=== PATIENT | female | born 1990 | race Caucasian/White ===

== ENCOUNTER → 2017-09-20 | Outpatient (CLI) | payer BC ==
[2017-09-20 17:13] LABS: BASO % 0.4 % (0.0-1.0); EOS % 0.3 % (0.0-3.0); IMMATURE GRANULOCYTE % 0.4 % (0-0); LYMPH # 0.8 10^3/uL (1.5-6.5); LYMPH % 9.6 % (24.0-44.0); MEAN CORPUSCULAR HEMOGLOBIN 29.5 pg (27.0-33.0); MEAN CORPUSCULAR HGB CONC 33.4 g/dl (32.0-36.5); MEAN CORPUSCULAR VOLUME 88.2 fl (80.0-96.0); MONO # 0.4 10^3/uL (0.0-0.8); NEUTROPHILS # 6.6 10^3/uL (1.8-7.7); NEUTROPHILS % 84.3 % (36.0-66.0); PLATELET COUNT, AUTOMATED 226 10^3/uL (150-450); RED CELL DISTRIBUTION WIDTH 11.8 % (11.5-14.5); WHITE BLOOD COUNT 7.8 10^3/uL (4.0-10.0)
[2017-09-20 17:21] LABS: CONTROL LINE MONO INT CTR LINE PRESENT
[2017-09-25 00:06] LABS: Lyme Disease IgG/IgM Antibodie <0.91 ISR (0.00-0.90); Lyme Disease IgM Ab Quantitati <0.80 index (0.00-0.79)
== END ==
LOC: M ADAMS 08:45
DX: R53.83 Other fatigue (principal)
CPT/HCPCS: 85025

== ENCOUNTER 2017-10-22 12:30 | Emergency (ER) | payer OTHER, BC | END 2017-10-22 14:27 | disposition home or self-care (01) | LOC: M ED 12:30 | DX: S60.222A Contusion of left hand, initial encounter (principal); V47.5XXA Car driver injured in collision with fixed or stationary object in traffic accident, initial encounter; Y92.410 Unspecified street and highway as the place of occurrence of the external cause; Y93.89 Activity, other specified | CPT/HCPCS: 73130 ==

== ENCOUNTER 2019-03-13 11:01 | Inpatient (IN) | payer BC, OTHER, SELFPAY ==
[~2019-03-13] VITALS: Ht 157.5 cm; Wt 71.0 kg
[~2019-03-13 11:01] MED LIST: XULA1DIS
[2019-03-13 13:10] VITALS: BP 141/68
[2019-03-13] MEDS ORDERED: SENN-23 PO (13:31)
[2019-03-13] MEDS ORDERED: COLA100C5 PO (13:31)
[2019-03-13] MEDS ORDERED: PREN1CHW6 PO (13:31)
[2019-03-13] MEDS ORDERED: CLIN1INJ IV (13:31)
[2019-03-13] MEDS ORDERED: [UNRECOGNIZED DRUG - CODE] IV (13:31)
[2019-03-13] MEDS ORDERED: LOVE1INJ SC (13:31)
[2019-03-13] MEDS ORDERED: IRON65TA2 PO (13:31)
[2019-03-13] MEDS ORDERED: IBUP80TA PO (13:31)
[2019-03-13] MEDS ORDERED: FOLI1TAB11 PO (13:31)
[2019-03-13] MEDS ORDERED: ACET-908 PO (13:31)
[2019-03-13 13:35] VITALS: BP 116/73
[2019-03-13] MEDS ORDERED: IRON SUCROSE 100MG 5ML VIAL (J1756 PER 1MG) IV ONE (14:00)
[2019-03-13] MEDS ORDERED: CLINDAMYCIN 600 MG in APPROPRIATE DILUENT 1 EA IV SCH (14:00)
[2019-03-13] MEDS ORDERED: NORCO, ANEXSIA 5/325MG TABLET (HYDROcodone/ACETAMINOPHEN) PO PRN (14:15)
--- NOTE | 2019-03-13 14:24 | HPEPDOC ---
General Date of Admission Mar 13, 2019 at 12:57 Date of Service: Mar 13, 2019 Chief Complaint The patient is a 28-year-old female admitted with a reason for visit of Severe Sepsis Post , Pe. History of Present Illness 28 yo F, post- day 3, no other known PMH transferred from [facility] while she was treated for severe sepsis under Dr. Gely Cook. She had a normal delivery on 03/10/2019, and she was successfully discharged. However, she developed a fever, chills, and presented to Dr. Cook's office. She was found to have leukocytosis up to 21.6 with symptoms of sepsis. Therefore, the patient was hospitalized. Initial CBC 21.6>10.1<175. Lactate 3.6. She was tachycardic. She has evidence of endometritis. Of note, she was found to have positive urine culture in Oct 2018 with Strep Agalactiae group B, but the patient decided not to be treated. During this hospital admission, two sets of blood culture shows G + cocci. Urine culture is in progress, but UA showed large UE, blood, and WBC 30-50. Lactate has normalized to 0.9. However, she was still tachycardic to 130-140. Therefore, Dr. Cook had CT angio, which confirmed PE in b/l lungs. Given post- d 3 bleeding, she received lovenox 40 subcut. Given complicated hospital course, the patient was transferred to [facility] for further medical management. Upon arrival, BP 144/68, HR 135, 95-97% on RA. She is febrile at 101F. Home Medications Scheduled Clindamycin in 0.9 % Sod Chlor (Clindamycin 900 mg/50 ml-Ns) 900 Mg/50 Ml Piggyback, 900 MG IV Q8H, (Reported) GIVEN AT [facility] Docusate Sodium (Colace) 100 Mg Capsule, 100 MG PO BID, (Reported) Enoxaparin Sodium (Lovenox) 40 Mg/0.4 Ml Syringe, 40 MG SC DAILY, (Reported) GIVEN AT [facility] Ferrous Sulfate (Iron) 325 Mg Tablet, 325 MG PO Q8H, (Reported) Folic Acid (Folic Acid) 1 Mg Tablet, 1 MG PO DAILY, (Reported) Gentamicin in NaCl, Iso-Osm (Gentamicin 100 mg/Ns 100 ml) 100 Mg/100 Ml Piggyback, 110 MG IV Q8H, (Reported) GIVEN AT [facility] Vit37/Iron/Folic Acid (Prenata Chewable Tablet) 1 Each Tab.chew, 1 CHW PO DAILY, (Reported) Sennosides/Docusate Sodium (Senna-S Tablet) 1 Each Tablet, 1 TAB PO BID, (Reported) Scheduled PRN Acetaminophen (Acetaminophen) 325 Mg Tablet, 650 MG PO Q4H PRN for PAIN, (Reported) Ibuprofen (Ibuprofen) 800 Mg Tablet, 800 MG PO TID PRN for PAIN, (Reported) Allergies Coded Allergies: amoxicillin (Verified Allergy, Unknown, HIVES, 03/13/19) cefprozil (Verified Allergy, Unknown, HIVES, 03/13/19) Past Medical History Medical History none Surgical History none Family History no significant FH Social History * Smoker: Denies Alcohol: Denies see above A-FIB/CHADSVASC A-FIB History Current/History of A-Fib/PAF?: No Review of Systems Constitutional: Reports: Chills, Fever, Weakness Eyes: Denies: Pain, Vision change, Conjunctivae inflammation, Eyelid inflammation, Redness, Other ENT: Denies: Head Aches, Ear Pain, Dysphagia, Sinus Congestion, Post Nasal Drip, Sore Throat, Epistaxis, Other Symptoms Skin: Denies: Rash, Lesions, Jaundice, Bruising, Itching, Dry, Breakdown, Nail Changes, Other Pulmonary: Reports: Other Symptoms (chest tightness) Cardiovascular: Denies: Chest Pain, Palpitations, Orthopnea, Paroxysmal Noc. Dyspnea, Edema, Lt Headedness, Other Symptoms Gastrointestinal: Reports: Abdominal Pain, Constipation Genitourinary: Denies: Dysuria, Frequency, Incontinence, Hematuria, Retention, Other Symptoms Hematologic: Denies: Bruising, Bleeding Excessively, Petecchia, Purpura, Enlarged Lymph Nodes, Other Hematologic Endocrine: Denies: Polydipsia, Polyphagia, Polyuria, Heat Intolerance, Cold Intolerance, Other Endocrine Sx Musculoskeletal: Denies: Neck Pain, Back Pain, Shoulder Pain, Arm Pain, Hand Pain, Leg Pain, Foot Pain, Joint Pain, Muscle Pain, Spasms, Other Symptoms Neurological: Denies: Weakness, Numbness, Incoordination, Change in speech, Confusion, Seizures, Other Symptoms Psych: Denies: Mood Normal, Anxiety, Depression, Memory Issues, Thoughts of Aruna f Harm, Anger, Thoughts of Harming Other, Other Psych Physical Examination General Exam: Positive: Alert, Cooperative, No Acute Distress Eye Exam: Positive: PERRLA ENT Exam: Positive: Atraumatic, Mucous membr. moist/pink Neck Exam: Positive: Supple Chest Exam: Positive: Clear to auscultation, Normal air movement Heart Exam: Positive: Tachycardic, Regular Rhythm Abdomen Exam: Positive: Normal bowel sounds Extremity Exam: Positive: Other (+1 edema b/l) Skin Exam: Positive: Nl turgor and temperature Neuro Exam: Positive: Normal Speech Psych Exam: Positive: Mood NL Vital Signs Vital Signs Date Time Temp Pulse Resp B/P (MAP) Pulse Ox O2 Delivery O2 Flow Rate FiO2 03/13/19 13:35 101.4 116/73 (87) 03/13/19 13:10 134 97 Problems (1) Severe sepsis Problem Text: # Severe sepsis from endometritis - The patient is febrile, tachycardic, leukocytosis, evidence of endometritis, with elevated lactic acid up to 3.6. Therefore, the patient has severe sepsis. - She is allergic to penicillin and cephalosporin. As mentioned in HPI, she declined to be treated for Group B strep treatment, and it was sensitive to clindamycin (JUWAN<0.25) and vancomycin (JUWAN 0.5). She received clindamycin and gentamicin at outside hospital. - Will send CBC/CMP, lactic acid, UA, urine culture, 2 sets of blood culture. Outside blood culture grows gram (+) cocci. - Will start clindamycin (bacteriocital), rather than vancomycin (bacteri ostatic). She was clinically improving on clindamycin at outside hospital. Also start aztreonam, which will continue until blood culture completely r/o gram (-) bacteria. # Pulmonary embolism - Currently, she is tachycardic and feels like her lungs are not expanding. This seems to be the symptom of PE. - Will start heparin gtt w/o bolus, given persistent vaginal bleeding from de livery. Heparin gtt can increase bleeding. Therefore, will carefully watch the degree of vaginal bleeding. PE can be life threatening. Therefore, if she has increased bleeding, will transfuse. Q6h CBC and PTT. - Today is Friday, not clear if echocardiogram is available, will order one. She has b/l lower ext edema +1, will order lower ext doppler to r/o DVT - likely be done on Friday. # Anemia - This is likely combination of IV hydration and bleeding from vagina. - Will give a dose of IV iron. # Constipation - Continue stool softner. Dr. Cook, , [facility] [phone], need to contact for culture sensitivity and speciation Plan / VTE VTE Prophylaxis Ordered?: Yes MARIA E GARCIA MD Mar 13, 2019 14:24
[2019-03-13] MEDS ORDERED: NS 1,000 ML IV SCH (14:30)
[2019-03-13 14:41] LABS: MEAN CORPUSCULAR HEMOGLOBIN 29.3 pg (27.0-33.0); MEAN CORPUSCULAR HGB CONC 32.1 g/dl (32.0-36.5); MEAN CORPUSCULAR VOLUME 91.2 fl (80.0-96.0); PLATELET COUNT, AUTOMATED 123 10^3/uL (150-450); RED BLOOD COUNT 3.07 10^6/uL (4.00-5.40)
[2019-03-13] MEDS: ACETAMINOPHEN TAB 650MG DOSE (2X325MG) PO PRN ×2 (14:44→21:18)
[2019-03-13 14:51] LABS: INR 1.19; PROTHROMBIN TIME 14.8 SECONDS (11.8-14.0)
[2019-03-13 14:52] LABS: PARTIAL THROMBOPLASTIN TIME 32.2 SECONDS (25.0-38.4)
[2019-03-13] MEDS ORDERED: AZTREONAM 2 GM in D5W MINI-BAG PLUS 50 ML IV SCH (15:00)
[2019-03-13 15:14] LABS: ALBUMIN 1.9 GM/DL (3.2-5.2); ALT/SGPT 151 U/L (12-78); BILIRUBIN,TOTAL 0.3 MG/DL (0.2-1.0); BLOOD UREA NITROGEN 6 MG/DL (7-18); CALCIUM LEVEL 8.3 MG/DL (8.5-10.1); CARBON DIOXIDE LEVEL 19 MEQ/L (21-32); CHLORIDE LEVEL 112 MEQ/L (98-107); CREATININE FOR GFR 0.42 MG/DL (0.55-1.30); GLOMERULAR FILTRATION RATE > 60.0 (>60); GLUCOSE, FASTING 102 MG/DL (70-100); POTASSIUM SERUM 3.5 MEQ/L (3.5-5.1); SODIUM LEVEL 140 MEQ/L (136-145); TOTAL PROTEIN 5.6 GM/DL (6.4-8.2)
[2019-03-13 16:00] VITALS: BP 114/55
[2019-03-13] MEDS ORDERED: IRON SUCROSE 200 MG in NS 100 ML OVER 1 HR IV ONE (16:00)
[2019-03-13] MEDS: LACTOBACILLUS ACIDOPHILUS CAP (BACID) PO SCH ×2 (16:00→21:18)
[2019-03-13] MEDS: HEPARIN DRIP 25,000 UNITS in APPROPRIATE DILUENT 1 EA IV SCH (16:13)
[2019-03-13] MEDS ORDERED: GENTAMICIN 100 MG in APPROPRIATE DILUENT 1 EA IV SCH (17:00)
[2019-03-13] MEDS: SENOKOT S TAB PO SCH (21:18)
[2019-03-13] MEDS: MEROPENEM INJ 2 GM in NS 100 ML IV SCH (21:19)
[2019-03-13 22:24] LABS: HEMATOCRIT 26.1 % (36.0-47.0); HEMOGLOBIN 8.6 g/dl (12.0-15.5); MEAN CORPUSCULAR HEMOGLOBIN 29.7 pg (27.0-33.0); PLATELET COUNT, AUTOMATED 117 10^3/uL (150-450); WHITE BLOOD COUNT 8.2 10^3/uL (4.0-10.0)
[2019-03-14] VITALS (7 sets, daily range): BP systolic 106–132; BP diastolic 47–84
[2019-03-14 04:28] LABS: HEMATOCRIT 29.7 % (36.0-47.0); HEMOGLOBIN 9.7 g/dl (12.0-15.5); MEAN CORPUSCULAR HEMOGLOBIN 29.2 pg (27.0-33.0); MEAN CORPUSCULAR HGB CONC 32.7 g/dl (32.0-36.5); MEAN CORPUSCULAR VOLUME 89.5 fl (80.0-96.0); PLATELET COUNT, AUTOMATED 159 10^3/uL (150-450); RED BLOOD COUNT 3.32 10^6/uL (4.00-5.40); WHITE BLOOD COUNT 10.4 10^3/uL (4.0-10.0)
[2019-03-14 05:00] LABS: ALBUMIN 2.1 GM/DL (3.2-5.2); ALT/SGPT 248 U/L (12-78); BILIRUBIN,TOTAL 0.5 MG/DL (0.2-1.0); BLOOD UREA NITROGEN 8 MG/DL (7-18); CARBON DIOXIDE LEVEL 22 MEQ/L (21-32); CHLORIDE LEVEL 109 MEQ/L (98-107); CREATININE FOR GFR 0.63 MG/DL (0.55-1.30); GLOMERULAR FILTRATION RATE > 60.0 (>60); GLUCOSE, FASTING 77 MG/DL (70-100); POTASSIUM SERUM 3.7 MEQ/L (3.5-5.1); SODIUM LEVEL 139 MEQ/L (136-145); TOTAL PROTEIN 5.9 GM/DL (6.4-8.2)
[2019-03-14] MEDS: ACETAMINOPHEN TAB 650MG DOSE (2X325MG) PO PRN ×4 (05:05→22:28)
[2019-03-14] MEDS: MEROPENEM INJ 2 GM in NS 100 ML IV SCH ×3 (06:30→21:23)
--- NOTE | 2019-03-14 06:41 | ECHO ---
DATE OF STUDY: 03/13/2019 REFERRING PHYSICIAN: Dr. Hudson Gee INDICATION: Acute pulmonary embolism. HEIGHT: 61 inches. WEIGHT: 154 pounds. 2D MEASUREMENTS: Ventricular septum 0.8 cm Posterior wall 0.87 cm Left ventricle diastole 4.6 cm Left atrium 3.0 cm Aortic root 3.0 cm Inferior vena cava 1.6 cm (more than 50% respiratory variation) DOPPLER MEASUREMENTS: Aortic valve velocity 218 cm/s LVOT velocity 163 cm/s LVOT VTI 25.9 cm Mitral E velocity 104 cm/s Mitral A velocity 135 cm/s Very mild tricuspid regurgitation Estimated right ventricle systolic pressure 39-44 mmHg assuming a right atrial pressure of 5-10 mmHg MITRAL ANNULAR TISSUE DOPPLER: E prime septal 14.7 cm/s E prime lateral 24.6 cm/s DESCRIPTION: Rhythm was sinus tachycardia. Image quality was good. No pericardial effusion. This was a 2D, M mode, color flow Doppler and pulse wave Doppler examination and included mitral annular tissue Doppler. CONCLUSIONS: 1. Suggestive of at least mild-moderate elevation of estimated right ventricle systolic pressure (at least 39-44 mmHg). Normal right ventricle size and systolic function. Normal central venous pressure (estimated to be 5-10 mmHg). 2. Normal left ventricle internal dimensions and wall thickness. Normal regional LV wall motion and wall thickening. Normal LV systolic function. LVEF 65-70% by visual estimate. Normal LV diastolic function. 3. Otherwise, normal appearing echocardiogram Doppler findings.
[2019-03-14] MEDS: SENOKOT S TAB PO SCH ×2 (10:08→21:23)
[2019-03-14] MEDS: LACTOBACILLUS ACIDOPHILUS CAP (BACID) PO SCH ×3 (10:09→21:23)
[2019-03-14] MEDS: HEPARIN DRIP 25,000 UNITS in APPROPRIATE DILUENT 1 EA IV SCH (12:36)
--- NOTE | 2019-03-14 17:12 | IPNPDOC ---
Date Seen The patient was seen on 03/14/19. Progress Note SUBJECTIVE: Ms Puente is a 28-year-old female who is . She unfortunately has had complications of sepsis, endometritis and bilateral pulmonary emboli. She is not having remarkable pain. She is having discomfort with deep inspiration. OBJECTIVE PHYSICAL EXAMINATION: VITAL SIGNS: Please see below. GENERAL: [Awake, alert, conversant. She is noted to have a sallow complexion but is otherwise not ill appearing] HEENT: [Neck is supple with no adenopathy or thyromegaly, oral mucosa is moist, she has good dentition, she does not have scleral icterus or injection.] CARDIOVASCULAR: [Regular rate and rhythm, no appreciable murmur]. RESPIRATORY: [Patient overall has good air movement, she does have tightness with inspiration, which induces cough.]. ABDOMINAL: [Soft, post-gravid, nondistended, bowel tones are present] EXTREMITIES: [No peripheral edema, pedal pulses are palpable] NEUROLOGICAL: [No focal neuromotor or sensory deficit] PSYCHOLOGICAL: [Cognition, judgment and insight appear to be intact.] LABORATORY DATA, IMAGING STUDIES, MICROBIOLOGY: Please see below. Echocardiogram: [Echocardiogram shows normal ejection fraction of 65-70% with normal diastolic function. Some increased right ventricular systolic pressure 39 and 44 mmHg which could be consistent with pulmonary embolus.]. DVT prophylaxis ordered?: [heparin gtt] ASSESSMENT/PLAN: 1. Sepsis--patient has endometritis. Blood cultures from outlying facility are positive for strep group B. Patient remains on meropenem. She has been afebrile and leukocytosis is resolved. 2. Bilateral pulmonary emboli--patient is on anticoagulation with heparin drip. She is expectant of lower extremity Dopplers as she does have lower extremity swelling. She will need to be on longer term anticoagulation. We will need to consider the fact that she plans to breast-feed in selecting an appropriate agent. 3. Elevated liver enzymes--the etiology of these is unclear. Bilirubin is normal. We will likely arrange for right upper quadrant ultrasound to eval the gallbladder and biliary tree.. She may also need vascular ultrasound of the area as well. DISPOSITION: . VS, I&O, 24H, Fishbone Vital Signs/I&O Vital Signs Date Time Temp Pulse Resp B/P (MAP) Pulse Ox O2 Delivery O2 Flow Rate FiO2 03/14/19 16:00 97.5 120 18 132/84 (100) 95 I&O- Last 24 Hours up to 6 AM 03/14/19 06:00 Intake Total 2021 ml Output Total 2049 ml Balance -28 ml Laboratory Data 24H LABS Laboratory Tests 2 03/13/19 22:12: Nucleated Red Blood Cells % (auto) 0.0, Activated Partial Thromboplast Time 73.5H, Troponin I 0.09 03/14/19 04:15: Nucleated Red Blood Cells % (auto) 0.0, Activated Partial Thromboplast Time 71.9H 03/14/19 04:16: Anion Gap 8, Glomerular Filtration Rate > 60.0, Blood Urea Nitrogen 8, Creatinine 0.63, Sodium Level 139, Potassium Level 3.7, Chloride Level 109H, Carbon Dioxide Level 22, Calcium Level 8.0L, Aspartate Amino Transf (AST/SGOT) 203H, Alanine Aminotransferase (ALT/SGPT) 248H, Alkaline Phosphatase 207H, Total Bilirubin 0.5#, Total Protein 5.9L, Albumin 2.1L, Albumin/Globulin Ratio 0.55L CBC/BMP Laboratory Tests 03/13/19 22:12 Red Blood Count 2.90 L, Mean Corpuscular Volume 90.0, Mean Corpuscular Hemoglobin 29.7, Mean Corpuscular Hemoglobin Concent 33.0, Red Cell Distribution Width 13.7 03/14/19 04:15 Red Blood Count 3.32 L, Mean Corpuscular Volume 89.5, Mean Corpuscular Hemoglobin 29.2, Mean Corpuscular Hemoglobin Concent 32.7, Red Cell Distribution Width 13.9 03/14/19 04:16 Calcium Level 8.0 L, Aspartate Amino Transf (AST/SGOT) 203 H, Alanine Aminotransferase (ALT/SGPT) 248 H, Alkaline Phosphatase 207 H, Total Bilirubin 0.5 #, Total Protein 5.9 L, Albumin 2.1 L Microbiology Microbiology 03/13/19 Blood Culture - Preliminary, Resulted No growth after 24 hours . All specim... 03/13/19 Blood Culture - Preliminary, Resulted No growth after 24 hours . All specim... ROLAN PINEDA MD Mar 14, 2019 17:12
[2019-03-15] VITALS (7 sets, daily range): BP systolic 119–135; BP diastolic 69–77
[2019-03-15] MEDS ORDERED: MAALOX 30 ML SUSP *UDC PO PRN (02:45)
[2019-03-15] MEDS ORDERED: IBUPROFEN 800 MG TAB PO ONE (02:45)
[2019-03-15] MEDS ORDERED: PANTOPRAZOLE 40MG INJ (PROTONIX) (C9113) IV ONE (02:45)
--- NOTE | 2019-03-15 04:26 | REPVR ---
EXAM: XR Chest, 1 View EXAM DATE/TIME: 03/15/2019 3:05 AM CLINICAL HISTORY: 28 years old, female; Shortness of breath; Patient HX: Septic, post , PE TECHNIQUE: Imaging protocol: XR of the chest, 1 view. COMPARISON: No relevant prior studies available. FINDINGS: Lungs: There are bibasilar airspace opacities. Pleural space: There is blunting of the costophrenic sulci bilaterally, which may indicate bilateral pleural effusions. No pneumothorax is identified. Heart/Mediastinum: Unremarkable. No cardiomegaly. Bones/joints: Unremarkable. IMPRESSION: 1. Bibasilar airspace opacities, which represent atelectasis, pneumonia, or aspiration pneumonia. 2. Blunting of the costophrenic sulci bilaterally, which may indicate bilateral pleural effusions. Electronically signed by: Tarik Prescott On 03/15/2019 04:26:35 AM
[2019-03-15] MEDS: MEROPENEM INJ 2 GM in NS 100 ML IV SCH ×2 (06:12→14:40)
[2019-03-15 06:42] LABS: ALBUMIN 1.9 GM/DL (3.2-5.2); ALT/SGPT 172 U/L (12-78); BILIRUBIN,TOTAL 0.5 MG/DL (0.2-1.0); BLOOD UREA NITROGEN 11 MG/DL (7-18); CALCIUM LEVEL 7.7 MG/DL (8.5-10.1); CARBON DIOXIDE LEVEL 19 MEQ/L (21-32); CHLORIDE LEVEL 112 MEQ/L (98-107); CREATININE FOR GFR 0.58 MG/DL (0.55-1.30); GLOMERULAR FILTRATION RATE > 60.0 (>60); GLUCOSE, FASTING 80 MG/DL (70-100); POTASSIUM SERUM 3.3 MEQ/L (3.5-5.1); SODIUM LEVEL 141 MEQ/L (136-145); TOTAL PROTEIN 5.4 GM/DL (6.4-8.2)
[2019-03-15] MEDS: POTASSIUM CHLORIDE 10 MEQ SR TABLET PO SCH (08:38)
[2019-03-15] MEDS: LACTOBACILLUS ACIDOPHILUS CAP (BACID) PO SCH ×3 (08:38→21:53)
[2019-03-15] MEDS: SENOKOT S TAB PO SCH ×2 (08:38→21:53)
--- NOTE | 2019-03-15 08:41 | REP ---
Abdominal right upper quadrant ultrasound for elevated liver function tests: There is ascites along the medial border of the hepatic right lobe. Additionally, there is a right pleural effusion. There is no cholelithiasis. There is pericholecystic fluid, possibly ascites. The gallbladder wall is thickened measuring up to 6.9 mm. This may be secondary to the ascites. There is no intrahepatic or extrahepatic biliary duct dilatation. The common duct measures 2.2 mm. The hepatic parenchyma is homogeneous and otherwise unremarkable. The visualized portions of the pancreas are unremarkable. There is no right renal calculus, mass, cyst or hydronephrosis. The right kidney is normal size measuring 12.7 x 7.8 x 3.8 cm. Impression: There is ascites along the medial margin of the hepatic right lobe. There is no cholelithiasis. There is pericholecystic fluid, possibly ascites. The gallbladder wall is thickened measuring up to 6.90 mm, possibly secondary to the ascites. There is no biliary duct dilatation. Electronically Signed by Chad Lugo MD 03/15/2019 08:33 A
[2019-03-15] MEDS: HEPARIN DRIP 25,000 UNITS in APPROPRIATE DILUENT 1 EA IV SCH (12:27)
[2019-03-15] MEDS: IBUPROFEN 800 MG TAB PO PRN (16:37)
--- NOTE | 2019-03-15 16:59 | IPNPDOC ---
Date Seen The patient was seen on 03/15/19. Progress Note SUBJECTIVE: This is a 28-year-old female with complications of sepsis, endometritis, and bilateral pulmonary emboli. She's been having some episodes of breathlessness and so is requiring some supplemental oxygen. She is not having chest pain. She is having some episodes of fever. OBJECTIVE PHYSICAL EXAMINATION: VITAL SIGNS: Please see below. GENERAL: Awake, alert, conversant. She is noted to have a sallow complexion but is otherwise not ill appearing HEENT: Neck is supple with no adenopathy or thyromegaly, oral mucosa is moist, she has good dentition, she does not have scleral icterus or injection. CARDIOVASCULAR: Regular rate and rhythm, no appreciable murmur. RESPIRATORY: Patient overall has good air movement, she does have tightness with inspiration, which induces cough.. ABDOMINAL: Soft, post-gravid, nondistended, mildly tender to deep palpation bowel tones are present EXTREMITIES: No peripheral edema, pedal pulses are palpable NEUROLOGICAL: No focal neuromotor or sensory deficit PSYCHOLOGICAL: Cognition, judgment and insight appear to be intact. SKIN: The patient does not have jaundice LABORATORY DATA, IMAGING STUDIES, MICROBIOLOGY: Please see below. Echocardiogram: . DVT prophylaxis ordered?: Patient is currently on a heparin drip ASSESSMENT/PLAN: 1. Sepsis--patient has endometritis. Blood cultures from outlying facility are positive for strep group B. Patient remains on meropenem. She has allergies to penicillin and reported cephalosporin. Leukocytosis is resolved. She has had fever, however. 2. Bilateral pulmonary emboli--patient is on anticoagulation with heparin drip. She is expectant of lower extremity Dopplers as she does have mild lower extremity swelling. She will need to be on longer term anticoagulation. The patient can be started on Coumadin therapy; it is not excreted into breast milk and consequently is not contraindicated. She can be transitioned to Lovenox for bridge therapy. 3. Elevated liver enzymes--the etiology of these is unclear. Bilirubin is normal. Liver enzyme levels are decreasing. Ultrasound is negative for ch olelithiasis or cholecystitis. We'll continue to monitor. 4. The patient had had some breast firmness and discomfort. She did not get relief from the breast pump. She has nursed her baby a few times and her milk flow is improving and this issue is resolved. There are no residual concerns for mastitis at this time. DISPOSITION: . VS, I&O, 24H, Fishbone Vital Signs/I&O Vital Signs Date Time Temp Pulse Resp B/P (MAP) Pulse Ox O2 Delivery O2 Flow Rate FiO2 03/15/19 16:00 102.7 131 20 135/74 (94) 97 3.0 I&O- Last 24 Hours up to 6 AM 03/15/19 06:00 Intake Total 1406 ml Output Total 2700 ml Balance -1294 ml Laboratory Data 24H LABS Laboratory Tests 2 03/15/19 05:55: Anion Gap 10, Glomerular Filtration Rate > 60.0, Blood Urea Nitrogen 11, Creatinine 0.58, Sodium Level 141, Potassium Level 3.3L, Chloride Level 112H, Carbon Dioxide Level 19L, Calcium Level 7.7L, Aspartate Amino Transf (AST/SGOT) 94H, Alanine Aminotransferase (ALT/SGPT) 172H, Alkaline Phosphatase 243H, Total Bilirubin 0.5, Total Protein 5.4L, Albumin 1.9L, Albumin/Globulin Ratio 0.54L 03/15/19 05:56: Activated Partial Thromboplast Time 82.1H CBC/BMP Laboratory Tests 03/15/19 05:55 Calcium Level 7.7 L, Aspartate Amino Transf (AST/SGOT) 94 H, Alanine Aminotransferase (ALT/SGPT) 172 H, Alkaline Phosphatase 243 H, Total Bilirubin 0.5, Total Protein 5.4 L, Albumin 1.9 L Microbiology Microbiology 03/13/19 Blood Culture - Preliminary, Resulted No Growth after 48 hours. All Specime... 03/13/19 Blood Culture - Preliminary, Resulted No Growth after 48 hours. All Specime... 03/15/19 Urine Culture, Received Pending ROLAN PINEDA MD Mar 15, 2019 16:59
[2019-03-15] MEDS ORDERED: MEROPENEM INJ 1 GM in APPROPRIATE DILUENT 1 EA IV SCH (17:00)
[2019-03-15] MEDS ORDERED: WARFARIN SOD 4 MG TAB PO SCH (17:00)
--- NOTE | 2019-03-15 18:22 | REP ---
Clinical: with bilateral lower extremity pain . Technique: Coto scale and color Doppler evaluation using linear high frequency transducer. Findings: Ultrasound examination of the right and left lower extremity deep venous structures from the common femoral vein to the popliteal vein demonstrates normal compressibility flow and wave patterns in response to respiration and augmentation. There is no evidence for deep venous thrombosis. Impression: No evidence for deep venous thrombosis. Electronically Signed by Orville Cornejo MD 03/15/2019 06:14 P
[2019-03-15] MEDS: MEROPENEM INJ 1 GM in APPROPRIATE DILUENT 1 EA IV SCH (21:52)
[2019-03-16] MEDS: IBUPROFEN 800 MG TAB PO PRN ×2 (03:47→23:21)
[2019-03-16 04:00] VITALS: BP 126/67
[2019-03-16] MEDS: MEROPENEM INJ 1 GM in APPROPRIATE DILUENT 1 EA IV SCH ×3 (06:02→21:11)
[2019-03-16 06:30] LABS: ALBUMIN 1.9 GM/DL (3.2-5.2); ALT/SGPT 140 U/L (12-78); BILIRUBIN,TOTAL 0.5 MG/DL (0.2-1.0); BLOOD UREA NITROGEN 16 MG/DL (7-18); CALCIUM LEVEL 8.1 MG/DL (8.5-10.1); CARBON DIOXIDE LEVEL 18 MEQ/L (21-32); CHLORIDE LEVEL 115 MEQ/L (98-107); GLOMERULAR FILTRATION RATE > 60.0 (>60); GLUCOSE, FASTING 101 MG/DL (70-100); POTASSIUM SERUM 3.2 MEQ/L (3.5-5.1); SODIUM LEVEL 143 MEQ/L (136-145); TOTAL PROTEIN 5.7 GM/DL (6.4-8.2)
[2019-03-16] MEDS: HEPARIN SOD (PORCINE) 5000 UNITS/ML VIAL IV PRN ×2 (06:39→20:04)
[2019-03-16 07:53] VITALS: BP 115/63
[2019-03-16] MEDS: SENOKOT S TAB PO SCH ×2 (09:13→21:10)
[2019-03-16] MEDS: LACTOBACILLUS ACIDOPHILUS CAP (BACID) PO SCH ×3 (09:13→21:10)
[2019-03-16] MEDS: POTASSIUM CHLORIDE 10 MEQ SR TABLET PO SCH (09:13)
[2019-03-16 11:01] LABS: INR 1.18; PROTHROMBIN TIME 14.7 SECONDS (11.8-14.0)
[2019-03-16 11:37] VITALS: BP 141/67
[2019-03-16] MEDS: HEPARIN DRIP 25,000 UNITS in APPROPRIATE DILUENT 1 EA IV SCH (12:36)
--- NOTE | 2019-03-16 14:14 | IPNPDOC ---
Text Note Date of Service The patient was seen on 03/16/19. NOTE Pt was seen and examined at bedside. Pt is day #6. She denies any lower abdomen pain or tenderness. Denies any fever chills. Pt is her . Pt denies any episode of bleeding. INR <2 on warfarin 4 mg. Heparin gtt running. Pt has good po intake, ambulates well. LE Doppler U/S negative for any DVT. Echo result was reviewed. PHE: VITAL SIGNS: Please see below. GENERAL: AAOx3 NAD HEENT: no jaundice neck supple no thyromegaly CARDIOVASCULAR: Regular rate and rhythm S1 S2 RESPIRATORY: clear bilat no wheeze no rales ABDOMINAL: soft NT ND EXTREMITIES: No peripheral edema, pedal pulses are palpable NEUROLOGICAL: No focal neuromotor or sensory deficit PSYCHOLOGICAL: mood affect appropriate LABORATORY DATA, IMAGING STUDIES, MICROBIOLOGY: Please see below. Echocardiogram: DESCRIPTION: Rhythm was sinus tachycardia. Image quality was good. No pericardial effusion. This was a 2D, M mode, color flow Doppler and pulse wave Doppler examination and included mitral annular tissue Doppler. CONCLUSIONS: 1. Suggestive of at least mild-moderate elevation of estimated right ventricle systolic pressure (at least 39-44 mmHg). Normal right ventricle size and systolic function. Normal central venous pressure (estimated to be 5-10 mmHg). 2. Normal left ventricle internal dimensions and wall thickness. Normal regional LV wall motion and wall thickening. Normal LV systolic function. LVEF 65-70% by visual estimate. Normal LV diastolic function. 3. Otherwise, normal appearing echocardiogram Doppler findings. Vital Signs Date Time Temp Pulse Resp B/P (MAP) Pulse Ox O2 Delivery O2 Flow Rate FiO2 03/16/19 12:00 3.0 03/16/19 11:37 97.3 99 18 141/67 (91) 97 3.0 03/16/19 08:00 3.0 03/16/19 07:53 97.9 89 17 115/63 (80) 94 3.0 03/16/19 04:00 100.3 120 16 126/67 (86) 93 03/15/19 23:59 98.3 103 16 127/69 (88) 93 03/15/19 20:00 99.2 112 16 119/77 (91) 92 03/15/19 17:48 100.0 03/15/19 16:00 2.0 03/15/19 16:00 102.7 131 20 135/74 (94) 97 3.0 03/15/19 14:49 102.0 Intake & Output 03/16/19 06:00 Intake Total 241 ml Output Total 400 ml Balance -159 ml Laboratory Tests 03/16/19 05:35: Activated Partial Thromboplast Time 56.9H, Blood Urea Nitrogen 16, Creatinine 0.60, Sodium Level 143, Potassium Level 3.2L, Chloride Level 115H, Carbon Dioxide Level 18L, Calcium Level 8.1L, Aspartate Amino Transf (AST/SGOT) 60H, Alanine Aminotransferase (ALT/SGPT) 140H, Alkaline Phosphatase 266H, Total Bilirubin 0.5, Total Protein 5.7L, Albumin 1.9L, Anion Gap 10, Glomerular Filtration Rate > 60.0, Fasting Glucose 101H, Albumin/Globulin Ratio 0.50L 03/16/19 10:22: Prothrombin Time 14.7H, Prothromb Time International Ratio 1.18 03/16/19 12:53: Activated Partial Thromboplast Time 82.3H Microbiology 03/15/19 Urine Culture - Final, Complete Current Medications Medications (Trade) Dose Ordered Sig/Gogo Route PRN Reason Start Time Stop Time Status Last Admin Dose Admin Heparin Sodium (Porcine) (Heparin) ASDIRECTED PRN IV SEE LABEL COMMENTS 03/13/19 14:00 03/16/19 06:39 2,900 UNITS Heparin Sodium (Porcine) 52946 units/IV Miscellaneous Supplies 250 ml @ 0 mls/hr Q0M IV 03/13/19 13:58 03/16/19 12:36 12 MLS/HR Ibuprofen (Advil) 800 mg Q8HP PRN PO FEVER 03/15/19 16:30 03/16/19 03:47 800 MG Lactobacillus Acidophilus (Bacid) 1 ea TID PO 03/13/19 16:00 03/16/19 09:13 1 EA Meropenem 1 gm/IV Miscellaneous Supplies 50 ml @ 100 mls/hr Q8H IV 03/15/19 22:00 03/16/19 14:09 100 MLS/HR Non-Formulary Medication (Heparin Iv Rate Change Documentation ml/ Hr) ASDIRECTED XX 03/13/19 14:00 03/18/19 13:59 03/16/19 06:41 1,200 Potassium Chloride (Micro-K Extencaps) 20 meq DAILY PO 03/15/19 09:00 03/16/19 09:13 20 MEQ Senna/Docusate Sodium (Senokot S) 2 tab BID PO 03/13/19 21:00 03/16/19 09:13 2 TAB Warfarin Sodium (Coumadin) 4 mg DAILY@17 PO 03/15/19 17:00 03/15/19 16:37 4 MG ASSESSMENT/PLAN: 1. Sepsis sec to endometritis hemodynamically improved WBC trended down On meropenem due to PCN allergy Blood Culture from outside [facility] Blood Culture on 03/13 negative x2 Denies any lower abdomen pain tenderness or vaginal discharge 2.Bilateral PE Echo reviewed, mild to moderate stress on Rt Ventricle Cont close clinical monitoring As evidenced in CTA from outside, record not available Con Heparin gtt Warfarin dose adjusted, INR in AM Doppler LE negative 3. Elevated liver enzymes cont to monitor likely sec to status Discharge planning: pt can be dc home once INR therapeutic. VS,Fishbone, I+O VS, Fishbone, I+O Laboratory Tests 03/16/19 05:35 Calcium Level 8.1 L, Aspartate Amino Transf (AST/SGOT) 60 H, Alanine Aminotransferase (ALT/SGPT) 140 H, Alkaline Phosphatase 266 H, Total Bilirubin 0.5, Total Protein 5.7 L, Albumin 1.9 L Vital Signs Date Time Temp Pulse Resp B/P (MAP) Pulse Ox O2 Delivery O2 Flow Rate FiO2 03/16/19 12:00 3.0 03/16/19 11:37 97.3 99 18 141/67 (91) 97 I&O- Last 24 Hours up to 6 AM 03/16/19 06:00 Intake Total 241 ml Output Total 400 ml Balance -159 ml GUSTAVO FLYNN MD Mar 16, 2019 14:14
[2019-03-16] MEDS: WARFARIN SOD 5 MG TAB PO SCH (16:09)
[2019-03-16 16:38] VITALS: BP 132/82
[2019-03-16 20:00] VITALS: BP 119/65
[2019-03-16 23:59] VITALS: BP 120/72
[2019-03-17] VITALS (7 sets, daily range): BP systolic 122–135; BP diastolic 60–91
[2019-03-17] MEDS: MEROPENEM INJ 1 GM in APPROPRIATE DILUENT 1 EA IV SCH ×3 (06:08→21:23)
[2019-03-17 06:39] LABS: HEMATOCRIT 24.4 % (36.0-47.0); HEMOGLOBIN 7.9 g/dl (12.0-15.5); MEAN CORPUSCULAR HEMOGLOBIN 28.3 pg (27.0-33.0); MEAN CORPUSCULAR HGB CONC 32.4 g/dl (32.0-36.5); MEAN CORPUSCULAR VOLUME 87.5 fl (80.0-96.0); PLATELET COUNT, AUTOMATED 227 10^3/uL (150-450); RED BLOOD COUNT 2.79 10^6/uL (4.00-5.40); WHITE BLOOD COUNT 9.9 10^3/uL (4.0-10.0)
[2019-03-17 06:44] LABS: INR 1.56; PROTHROMBIN TIME 18.4 SECONDS (11.8-14.0)
[2019-03-17 07:01] LABS: ALBUMIN 1.8 GM/DL (3.2-5.2); ALT/SGPT 109 U/L (12-78); BILIRUBIN,TOTAL 0.3 MG/DL (0.2-1.0); BLOOD UREA NITROGEN 15 MG/DL (7-18); CALCIUM LEVEL 7.9 MG/DL (8.5-10.1); CARBON DIOXIDE LEVEL 20 MEQ/L (21-32); CHLORIDE LEVEL 115 MEQ/L (98-107); CREATININE FOR GFR 0.52 MG/DL (0.55-1.30); GLOMERULAR FILTRATION RATE > 60.0 (>60); GLUCOSE, FASTING 72 MG/DL (70-100); POTASSIUM SERUM 3.6 MEQ/L (3.5-5.1); SODIUM LEVEL 144 MEQ/L (136-145); TOTAL PROTEIN 5.5 GM/DL (6.4-8.2)
[2019-03-17 07:22] LABS: EOSINOPHILS 2 % (0-5); LYMPHOCYTES 35 % (16-52); MONOCYTES 7 % (0-8); NEUTROPHILS 56 % (35-75); PLATELET ESTIMATE NORMAL (NORMAL)
[2019-03-17] MEDS: POTASSIUM CHLORIDE 10 MEQ SR TABLET PO SCH (09:28)
[2019-03-17] MEDS: SENOKOT S TAB PO SCH ×2 (09:29→21:23)
[2019-03-17] MEDS: LACTOBACILLUS ACIDOPHILUS CAP (BACID) PO SCH ×3 (09:29→21:23)
[2019-03-17] MEDS: HEPARIN DRIP 25,000 UNITS in APPROPRIATE DILUENT 1 EA IV SCH (10:33)
[2019-03-17] MEDS: IBUPROFEN 800 MG TAB PO PRN (16:13)
[2019-03-17] MEDS: WARFARIN SOD 5 MG TAB PO SCH (16:14)
--- NOTE | 2019-03-17 18:13 | IPNPDOC ---
Text Note Date of Service The patient was seen on 03/17/19. NOTE Pt was seen and examined at bedside. Pt denies any lower abdomen pain, no ep isode of bleeding, heparin drip continues, at bedside. Discussed with pt and plan for anticoagulation and antibiotic therapy upon DC home. PHE: VITAL SIGNS: Please see below. GENERAL: AAOx3 NAD pt severely pale appearing HEENT: no jaundice neck supple no thyromegaly CARDIOVASCULAR: Regular rate and rhythm S1 S2 RESPIRATORY: clear bilat no wheeze no rales ABDOMINAL: soft NT ND EXTREMITIES: No peripheral edema, pedal pulses are palpable NEUROLOGICAL: No focal neuromotor or sensory deficit PSYCHOLOGICAL: mood affect appropriate Echocardiogram: DESCRIPTION: Rhythm was sinus tachycardia. Image quality was good. No pericardial effusion. This was a 2D, M mode, color flow Doppler and pulse wave Doppler examination and included mitral annular tissue Doppler. CONCLUSIONS: 1. Suggestive of at least mild-moderate elevation of estimated right ventricle systolic pressure (at least 39-44 mmHg). Normal right ventricle size and systolic function. Normal central venous pressure (estimated to be 5-10 mmHg). 2. Normal left ventricle internal dimensions and wall thickness. Normal regional LV wall motion and wall thickening. Normal LV systolic function. LVEF 65-70% by visual estimate. Normal LV diastolic function. 3. Otherwise, normal appearing echocardiogram Doppler findings. Vital Signs Date Time Temp Pulse Resp B/P (MAP) Pulse Ox O2 Delivery O2 Flow Rate FiO2 03/17/19 16:12 98.9 104 18 135/73 (93) 96 03/17/19 16:00 98.6 93 18 134/91 (105) 94 03/17/19 11:47 97.1 109 18 122/60 (80) 96 03/17/19 09:15 96 03/17/19 08:00 97.4 85 18 123/60 (81) 98 2.0 03/17/19 04:00 97.5 82 18 122/64 (83) 99 2.0 03/17/19 04:00 2.0 03/17/19 00:00 2.0 03/16/19 23:59 99.6 100 20 120/72 (88) 96 2.0 03/16/19 20:00 99.4 115 20 119/65 (83) 96 2.0 03/16/19 20:00 2.0 Intake & Output 03/17/19 06:00 Intake Total 1245 ml Output Total 650 ml Balance 595 ml Laboratory Tests 03/16/19 18:53: Activated Partial Thromboplast Time 62.6H 03/17/19 02:28: Activated Partial Thromboplast Time 137.9*H 03/17/19 06:11: White Blood Count 9.9, Red Blood Count 2.79L, Hemoglobin 7.9L, Hematocrit 24.4L, Mean Corpuscular Volume 87.5, Mean Corpuscular Hemoglobin 28.3, Mean Corpuscular Hemoglobin Concent 32.4, Red Cell Distribution Width 13.7, Platelet Count 227, Immature Granulocyte % (Auto) , Nucleated Red Blood Cells % (auto) 0.2H, Neutrophils 56, Lymphocytes (Manual) 35, Monocytes (Manual) 7, Eosinophils (Manual) 2, Platelet Estimate NORMAL, Red Blood Cell Morphology NORMAL, Prothrombin Time 18.4H, Prothromb Time International Ratio 1.56, Blood Urea Nitrogen 15, Creatinine 0.52L, Sodium Level 144, Potassium Level 3.6, Chloride Level 115H, Carbon Dioxide Level 20L, Calcium Level 7.9L, Aspartate Amino Transf (AST/SGOT) 43H, Alanine Aminotransferase (ALT/SGPT) 109H, Alkaline Phosphatase 293H, Total Bilirubin 0.3, Total Protein 5.5L, Albumin 1.8L, Anion Gap 9, Glomerular Filtration Rate > 60.0, Fasting Glucose 72, Albumin/Globulin Ratio 0.49L 03/17/19 10:34: Activated Partial Thromboplast Time 80.1H 03/17/19 16:39: Activated Partial Thromboplast Time 85.7H Microbiology 03/15/19 Urine Culture - Final, Complete Current Medications Medications (Trade) Dose Ordered Sig/Gogo Route PRN Reason Start Time Stop Time Status Last Admin Dose Admin Heparin Sodium (Porcine) (Heparin) ASDIRECTED PRN IV SEE LABEL COMMENTS 03/13/19 14:00 03/16/19 20:04 2,900 UNITS Heparin Sodium (Porcine) 27691 units/IV Miscellaneous Supplies 250 ml @ 0 mls/hr Q0M IV 03/13/19 13:58 03/17/19 10:33 11 MLS/HR Ibuprofen (Advil) 800 mg Q8HP PRN PO FEVER 03/15/19 16:30 6/26/19 16:13 800 MG Lactobacillus Acidophilus (Bacid) 1 ea TID PO 03/13/19 16:00 03/17/19 16:13 1 EA Meropenem 1 gm/IV Miscellaneous Supplies 50 ml @ 100 mls/hr Q8H IV 03/15/19 22:00 03/17/19 14:16 100 MLS/HR Non-Formulary Medication (Heparin Iv Rate Change Documentation ml/ Hr) ASDIRECTED XX 03/13/19 14:00 03/18/19 13:59 03/17/19 04:32 1,100 Potassium Chloride (Micro-K Extencaps) 20 meq DAILY PO 03/15/19 09:00 03/17/19 09:28 20 MEQ Senna/Docusate Sodium (Senokot S) 2 tab BID PO 03/13/19 21:00 03/17/19 09:29 2 TAB Warfarin Sodium (Coumadin) 5 mg DAILY@17 PO 03/16/19 17:00 03/17/19 16:14 5 MG ASSESSMENT/PLAN: 1. Sepsis sec to endometritis hemodynamically improved WBC trended down On meropenem due to PCN allergy Blood Culture from outside GBS Blood Culture on 03/13 negative x2 Denies any lower abdomen pain tenderness or vaginal discharge switch to PO upon DC 2.Bilateral PE Echo reviewed, mild to moderate stress on Rt Ventricle Cont close clinical monitoring As evidenced in CTA from outside, record not available Con Heparin gtt Warfarin dose adjusted, INR in AM Doppler LE negative 3. Elevated liver enzymes cont to monitor likely sec to status Discharge planning: pt can be dc home once INR therapeutic. VS,Fishbone, I+O VS, Fishbone, I+O Laboratory Tests 03/17/19 06:11 Red Blood Count 2.79 L, Mean Corpuscular Volume 87.5, Mean Corpuscular Hemoglobin 28.3, Mean Corpuscular Hemoglobin Concent 32.4, Red Cell Distribution Width 13.7, Calcium Level 7.9 L, Aspartate Amino Transf (AST/SGOT) 43 H, Alanine Aminotransferase (ALT/SGPT) 109 H, Alkaline Phosphatase 293 H, Total Bilirubin 0.3, Total Protein 5.5 L, Albumin 1.8 L Vital Signs Date Time Temp Pulse Resp B/P (MAP) Pulse Ox O2 Delivery O2 Flow Rate FiO2 6/26/19 16:12 98.9 104 18 135/73 (93) 96 03/17/19 08:00 2.0 I&O- Last 24 Hours up to 6 AM 03/17/19 06:00 Intake Total 1245 ml Output Total 650 ml Balance 595 ml GUSTAVO FLYNN MD Mar 17, 2019 18:12
[2019-03-17] MEDS: FERROUS GLUCONATE 324 MG TAB PO SCH (21:24)
[2019-03-18 04:00] VITALS: BP 124/59
[2019-03-18] MEDS: MEROPENEM INJ 1 GM in APPROPRIATE DILUENT 1 EA IV SCH ×3 (05:57→21:52)
[2019-03-18 06:25] LABS: HEMATOCRIT 25.1 % (36.0-47.0); HEMOGLOBIN 8.2 g/dl (12.0-15.5); MEAN CORPUSCULAR HEMOGLOBIN 29.4 pg (27.0-33.0); MEAN CORPUSCULAR HGB CONC 32.7 g/dl (32.0-36.5); PLATELET COUNT, AUTOMATED 254 10^3/uL (150-450); RED BLOOD COUNT 2.79 10^6/uL (4.00-5.40); WHITE BLOOD COUNT 10.8 10^3/uL (4.0-10.0)
[2019-03-18 06:31] LABS: INR 2.56; PROTHROMBIN TIME 27.4 SECONDS (11.8-14.0)
[2019-03-18 06:33] LABS: PARTIAL THROMBOPLASTIN TIME 96.6 SECONDS (25.0-38.4)
[2019-03-18 06:47] LABS: ALBUMIN 1.9 GM/DL (3.2-5.2); ALT/SGPT 96 U/L (12-78); BILIRUBIN,TOTAL 0.3 MG/DL (0.2-1.0); BLOOD UREA NITROGEN 16 MG/DL (7-18); CALCIUM LEVEL 8.1 MG/DL (8.5-10.1); CARBON DIOXIDE LEVEL 21 MEQ/L (21-32); CHLORIDE LEVEL 115 MEQ/L (98-107); CREATININE FOR GFR 0.45 MG/DL (0.55-1.30); GLOMERULAR FILTRATION RATE > 60.0 (>60); GLUCOSE, FASTING 87 MG/DL (70-100); POTASSIUM SERUM 3.9 MEQ/L (3.5-5.1); SODIUM LEVEL 144 MEQ/L (136-145); TOTAL PROTEIN 5.5 GM/DL (6.4-8.2)
[2019-03-18] MEDS: FERROUS GLUCONATE 324 MG TAB PO SCH ×3 (07:47→21:51)
[2019-03-18] MEDS: LACTOBACILLUS ACIDOPHILUS CAP (BACID) PO SCH ×3 (07:47→21:51)
[2019-03-18] MEDS: SENOKOT S TAB PO SCH ×2 (07:48→21:51)
[2019-03-18] MEDS: POTASSIUM CHLORIDE 10 MEQ SR TABLET PO SCH (07:48)
[2019-03-18] MEDS: IBUPROFEN 800 MG TAB PO PRN (07:48)
[2019-03-18 08:00] VITALS: BP 125/82
[2019-03-18] MEDS: HEPARIN DRIP 25,000 UNITS in APPROPRIATE DILUENT 1 EA IV SCH (09:57)
[2019-03-18 11:32] VITALS: BP 105/64
[2019-03-18 16:18] VITALS: BP 133/79
[2019-03-18] MEDS ORDERED: WARFARIN SOD 3 MG TAB PO SCH (17:00)
--- NOTE | 2019-03-18 17:44 | IPNPDOC ---
Text Note Date of Service The patient was seen on 03/18/19. NOTE Pt was seen and examined at bedside. Pt denies any fever or chills. INR 2.56 on Warfarin 6mg. Pt denies any abdominal pain. Denies any breathing difficulty. O2 sat on RA WNL. Plan for DC in AM after 48 hr therapeutic INR with Heparin gtt. PHE: VITAL SIGNS: Please see below. GENERAL: AAOx3 NAD pt severely pale appearing HEENT: no jaundice neck supple no thyromegaly CARDIOVASCULAR: Regular rate and rhythm S1 S2 RESPIRATORY: clear bilat no wheeze no rales ABDOMINAL: soft NT ND EXTREMITIES: No peripheral edema, pedal pulses are palpable NEUROLOGICAL: No focal neuromotor or sensory deficit PSYCHOLOGICAL: mood affect appropriate Echocardiogram: DESCRIPTION: Rhythm was sinus tachycardia. Image quality was good. No pericardial effusion. This was a 2D, M mode, color flow Doppler and pulse wave Doppler examination and included mitral annular tissue Doppler. CONCLUSIONS: 1. Suggestive of at least mild-moderate elevation of estimated right ventricle systolic pressure (at least 39-44 mmHg). Normal right ventricle size and systolic function. Normal central venous pressure (estimated to be 5-10 mmHg). 2. Normal left ventricle internal dimensions and wall thickness. Normal regional LV wall motion and wall thickening. Normal LV systolic function. LVEF 65-70% by visual estimate. Normal LV diastolic function. 3. Otherwise, normal appearing echocardiogram Doppler findings. Vital Signs Date Time Temp Pulse Resp B/P (MAP) Pulse Ox O2 Delivery O2 Flow Rate FiO2 03/18/19 20:00 99.0 93 16 124/69 (87) 97 03/18/19 16:18 97.7 88 18 133/79 (97) 96 03/18/19 11:32 98.0 76 18 105/64 (78) 97 03/18/19 08:00 98.1 87 18 125/82 (96) 95 03/18/19 04:00 96.9 87 22 124/59 (80) 92 03/17/19 23:59 98.8 80 20 131/70 (90) 100 Intake & Output 03/18/19 06:00 Intake Total 1536 ml Output Total 950 ml Balance 586 ml Laboratory Tests 03/18/19 05:48: White Blood Count 10.8H, Red Blood Count 2.79L, Hemoglobin 8.2L, Hematocrit 25.1L, Mean Corpuscular Volume 90.0, Mean Corpuscular Hemoglobin 29.4, Mean Corpuscular Hemoglobin Concent 32.7, Red Cell Distribution Width 13.8, Platelet Count 254, Nucleated Red Blood Cells % (auto) 0.3H, Prothrombin Time 27.4H, Prothromb Time International Ratio 2.56, Activated Partial Thromboplast Time 96.6H, Blood Urea Nitrogen 16, Creatinine 0.45L, Sodium Level 144, Potassium Level 3.9, Chloride Level 115H, Carbon Dioxide Level 21, Calcium Level 8.1L, Aspartate Amino Transf (AST/SGOT) 45H, Alanine Aminotransferase (ALT/SGPT) 96H, Alkaline Phosphatase 284H, Total Bilirubin 0.3, Total Protein 5.5L, Albumin 1.9L, Anion Gap 8, Glomerular Filtration Rate > 60.0, Fasting Glucose 87, Albumin/Globulin Ratio 0.53L Microbiology 03/13/19 Blood Culture - Final, Complete NO GROWTH AFTER 5 DAYS 03/13/19 Blood Culture - Final, Complete NO GROWTH AFTER 5 DAYS 03/15/19 Urine Culture - Final, Complete Current Medications Medications (Trade) Dose Ordered Sig/Gogo Route PRN Reason Start Time Stop Time Status Last Admin Dose Admin Ferrous Gluconate (Fergon) 324 mg TID PO 03/17/19 21:00 03/18/19 21:51 324 MG Heparin Sodium (Porcine) (Heparin) ASDIRECTED PRN IV SEE LABEL COMMENTS 03/13/19 14:00 03/16/19 20:04 2,900 UNITS Heparin Sodium (Porcine) 90278 units/IV Miscellaneous Supplies 250 ml @ 0 mls/hr Q0M IV 03/13/19 13:58 03/18/19 09:57 11 MLS/HR Ibuprofen (Advil) 800 mg Q8HP PRN PO FEVER 03/15/19 16:30 03/18/19 07:48 800 MG Lactobacillus Acidophilus (Bacid) 1 ea TID PO 03/13/19 16:00 03/18/19 21:51 1 EA Meropenem 1 gm/IV Miscellaneous Supplies 50 ml @ 100 mls/hr Q8H IV 03/15/19 22:00 03/18/19 21:52 100 MLS/HR Potassium Chloride (Micro-K Extencaps) 20 meq DAILY PO 03/15/19 09:00 03/18/19 07:48 20 MEQ Senna/Docusate Sodium (Senokot S) 2 tab BID PO 03/13/19 21:00 03/18/19 21:51 2 TAB Warfarin Sodium (Coumadin) 6 mg DAILY@17 PO 03/18/19 17:00 03/18/19 16:15 6 MG ASSESSMENT/PLAN: 1. Sepsis sec to endometritis , resolved hemodynamically improved WBC trended down On meropenem due to PCN allergy Blood Culture from outside GBS Blood Culture on 03/13 negative x2 Denies any lower abdomen pain tenderness or vaginal discharge switch to PO upon DC 2.Bilateral PE Echo reviewed, mild to moderate stress on Rt Ventricle Cont close clinical monitoring As evidenced in CTA from outside, record not available Cont Heparin gtt Warfarin dose adjusted, INR in AM, last 2.56 Doppler LE negative 3. Elevated liver enzymes cont to monitor likely sec to status As per review of literature it is recommended to continue anticoagulation for at least 3 months in status in a pt with current clinical presentation. It was discussed with pt and importance of completing course of PO antibiotics upon dc and anticoagulation with Warfarin with close monitoring of INR as per PCP. Pt and verbalized understanding. VS,Fishbone, I+O VS, Fishbone, I+O Laboratory Tests 03/18/19 05:48 Red Blood Count 2.79 L, Mean Corpuscular Volume 90.0, Mean Corpuscular Hemoglobin 29.4, Mean Corpuscular Hemoglobin Concent 32.7, Red Cell Distribution Width 13.8, Calcium Level 8.1 L, Aspartate Amino Transf (AST/SGOT) 45 H, Alanine Aminotransferase (ALT/SGPT) 96 H, Alkaline Phosphatase 284 H, Total Bilirubin 0.3, Total Protein 5.5 L, Albumin 1.9 L Vital Signs Date Time Temp Pulse Resp B/P (MAP) Pulse Ox O2 Delivery O2 Flow Rate FiO2 03/18/19 16:18 97.7 88 18 133/79 (97) 96 03/17/19 08:00 2.0 I&O- Last 24 Hours up to 6 AM 03/18/19 06:00 Intake Total 1536 ml Output Total 950 ml Balance 586 ml GUSTAVO FLYNN MD Mar 18, 2019 17:44
[2019-03-18 20:00] VITALS: BP 124/69
[2019-03-19] VITALS: BP 134/81
[2019-03-19] MEDS: IBUPROFEN 800 MG TAB PO PRN (01:15)
[2019-03-19 04:00] VITALS: BP 137/92
[2019-03-19] MEDS: MEROPENEM INJ 1 GM in APPROPRIATE DILUENT 1 EA IV SCH (05:41)
[2019-03-19 06:11] LABS: INR 3.9; PROTHROMBIN TIME 38.3 SECONDS (11.8-14.0)
[2019-03-19 06:13] LABS: PARTIAL THROMBOPLASTIN TIME 105.5 SECONDS (25.0-38.4)
[2019-03-19 06:29] LABS: ALT/SGPT 81 U/L (12-78); BILIRUBIN,TOTAL 0.2 MG/DL (0.2-1.0); BLOOD UREA NITROGEN 15 MG/DL (7-18); CALCIUM LEVEL 8.1 MG/DL (8.5-10.1); CARBON DIOXIDE LEVEL 23 MEQ/L (21-32); CHLORIDE LEVEL 112 MEQ/L (98-107); CREATININE FOR GFR 0.43 MG/DL (0.55-1.30); GLOMERULAR FILTRATION RATE > 60.0 (>60); GLUCOSE, FASTING 79 MG/DL (70-100); POTASSIUM SERUM 4.4 MEQ/L (3.5-5.1); SODIUM LEVEL 142 MEQ/L (136-145); TOTAL PROTEIN 5.3 GM/DL (6.4-8.2)
[2019-03-19] MEDS ORDERED: WARF-20 PO (07:41)
[2019-03-19] MEDS: LACTOBACILLUS ACIDOPHILUS CAP (BACID) PO SCH (09:41)
[2019-03-19] MEDS: SENOKOT S TAB PO SCH (09:41)
[2019-03-19] MEDS: POTASSIUM CHLORIDE 10 MEQ SR TABLET PO SCH (09:41)
[2019-03-19] MEDS: FERROUS GLUCONATE 324 MG TAB PO SCH (09:41)
[2019-03-19 11:00] VITALS: BP 137/71
[2019-03-19] MEDS ORDERED: AUGM875T28 PO (11:59)
--- NOTE | 2019-03-20 11:44 | DS.PDOC ---
Discharge Summary General Date of Admission Mar 13, 2019 at 12:57 Date of Discharge Mar 19, 2019 Attending Physician: GUSTAVO FLYNN MD Discharge Summary PROCEDURES PERFORMED DURING STAY: None ADMITTING DIAGNOSES: 1. Sepsis sec to endometritis, 2. post Endometritis 2. Bilateral PE 4 Trans aminitis and Elevated liver enzymes. DISCHARGE DIAGNOSES: 1. As above. COMPLICATIONS/CHIEF COMPLAINT: Severe Sepsis Post , PE. HISTORY OF PRESENT ILLNESS: 28 yo F, post- day 3, no other known PMH transferred from [facility] while she was treated for severe sepsis under Dr. Gely Cook. She had a Normal Vaginal Delivery on 03/10/2019, and she was successfully discharged. However, she developed a fever, chills, and presented to Dr. Ortega's office. She was found to have leukocytosis up to 21.6 with symptoms of sepsis. Therefore, the patient was hospitalized. Initial CBC 21.6>10.1<175. Lactate 3.6. She was tachycardic. She has evidence of Endometritis. Of note, she was found to have positive urine culture in Oct 2018 with Strep Agalactiae group B, but the patient decided not to be treated. During this hospital admission, two sets of blood culture showed G + cocci. Urine culture is in progress, but UA showed large UE, blood, and WBC 30-50. Lactate has normalized to 0.9. However, she was still tachycardic to 130-140. Therefore, Dr. Cook had CT angio, which confirmed PE in b/l lungs. Given post- d 3 bleeding, she received lovenox 40 subcut. Given complicated hospital course, the patient was transferred to [facility] for further medical management. Upon arrival, BP 144/68, HR 135, 95-97% on RA. She is febrile at 101F. HOSPITAL COURSE: 1. Sepsis sec to endometritis , resolved, hemodynamically improved, WBC trended down, On meropenem Blood Culture from outside GBS Blood Culture on 03/13 negative x2 Denied any lower abdomen pain tenderness or vaginal discharge switched to PO upon DC 2.Bilateral PE As evidenced in CTA from outside, Echo: mild to moderate stress on Rt Ventricle Doppler ofb/L LE negative Started on Heparin gtt and Warfarin, dose adjusted accordingly, Was DC with warfarin, was informed about the risk of bleeding and advised to follow with PCP or Coumadin clinic 3. Elevated liver enzymes, transaminitis likely sec to status, Improved DISCHARGE MEDICATIONS: Please see below. ALLERGIES: Please see below. PHYSICAL EXAMINATION ON DISCHARGE: VITAL SIGNS: Please see below. GENERAL: AAOx3 NAD pt severely pale appearing HEENT: no jaundice neck supple no thyromegaly CARDIOVASCULAR: Regular rate and rhythm S1 S2 RESPIRATORY: clear bilat no wheeze no rales ABDOMINAL: soft NT ND EXTREMITIES: No peripheral edema, pedal pulses are palpable NEUROLOGICAL: No focal neuromotor or sensory deficit PSYCHOLOGICAL: mood affect appropriate LABORATORY DATA: Please see below. IMAGIN/ B/L LE Doppler 03/15/19: No evidence for deep venous thrombosis. 2/ RUQ Abd US 03/15/19 : Impression: There is ascites along the medial margin of the hepatic right lobe. There is no cholelithiasis. There is pericholecystic fluid, possibly ascites. The gallbladder wall is thickened measuring up to 6.90 mm, possibly secondary to the ascites. There is no biliary duct dilatation. 3/ CXR on 03/15/19 IMPRESSION: 1. Bibasilar airspace opacities, which represent atelectasis, pneumonia, or aspiration pneumonia. 2. Blunting of the costophrenic sulci bilaterally, which may indicate bilateral pleural effusions. ECHO: DATE OF STUDY: 03/13/2019 CONCLUSIONS: 1. Suggestive of at least mild-moderate elevation of estimated right ventricle systolic pressure (at least 39-44 mmHg). Normal right ventricle size and systolic function. Normal central venous pressure (estimated to be 5-10 mmHg). 2. Normal left ventricle internal dimensions and wall thickness. Normal regional LV wall motion and wall thickening. Normal LV systolic function. LVEF 65-70% by visual estimate. Normal LV diastolic function. 3. Otherwise, normal appearing echocardiogram Doppler findings. PROGNOSIS: Fair ACTIVITY: As tolerated, avoid trauma. DIET: Regular DISCHARGE PLAN: As per patient her PCN allergy was limited to rash 20 years ago. No reaction while since then, However was advised to return to ED with any side effects. Augmentin PO prescribed to complete course of antibiotics for 7 days. Needs to follow the INR for Warfarin dose adjustment DISPOSITION: 01 Home, Self-Care. DISCHARGE INSTRUCTIONS: 1. Return to ED with any warning signs as explained to the patient such as dizziness, dyspnea, chest pain, skin bruises or active bleeding ITEMS TO FOLLOWUP ON ON OUTPATIENT: 1. Follow with PCP in a week for Warfarin dose adjustment 2. Follow with Primary [employer] DISCHARGE CONDITION: Stable, afebrile, no respiratory distress,palpitation or chest pain. TIME SPENT ON DISCHARGE: Greater than 25 minutes. Vital Signs/I&Os Vital Signs Date Time Temp Pulse Resp B/P (MAP) Pulse Ox O2 Delivery O2 Flow Rate FiO2 03/19/19 11:00 98.0 74 18 137/71 (93) 98 03/17/19 08:00 2.0 I&O- Last 24 Hours up to 6 AM 03/20/19 06:00 Intake Total 50 ml Output Total 0 ml Balance 50 ml Laboratory Data Labs 24H Laboratory Tests 03/19/19 05:35 Calcium Level 8.1 L, Aspartate Amino Transf (AST/SGOT) 26, Alanine Aminotransferase (ALT/SGPT) 81 H, Alkaline Phosphatase 273 H, Total Bilirubin 0.2, Total Protein 5.3 L, Albumin 2.0 L CBC/BMP Laboratory Tests Test 03/17/19 06:11 03/18/19 05:48 03/19/19 05:35 Blood Urea Nitrogen 15 MG/DL (7-18) 16 MG/DL (7-18) 15 MG/DL (7-18) Creatinine 0.52 MG/DL (0.55-1.30) 0.45 MG/DL (0.55-1.30) 0.43 MG/DL (0.55-1.30) Sodium Level 144 MEQ/L (136-145) 144 MEQ/L (136-145) 142 MEQ/L (136-145) Potassium Level 3.6 MEQ/L (3.5-5.1) 3.9 MEQ/L (3.5-5.1) 4.4 MEQ/L (3.5-5.1) Chloride Level 115 MEQ/L (98-107) 115 MEQ/L (98-107) 112 MEQ/L (98-107) Carbon Dioxide Level 20 MEQ/L (21-32) 21 MEQ/L (21-32) 23 MEQ/L (21-32) Calcium Level 7.9 MG/DL (8.5-10.1) 8.1 MG/DL (8.5-10.1) 8.1 MG/DL (8.5-10.1) Aspartate Amino Transf (AST/SGOT) 43 U/L (7-37) 45 U/L (7-37) 26 U/L (7-37) Alanine Aminotransferase (ALT/SGPT) 109 U/L (12-78) 96 U/L (12-78) 81 U/L (12-78) Alkaline Phosphatase 293 U/L (45-117) 284 U/L (45-117) 273 U/L (45-117) Total Bilirubin 0.3 MG/DL (0.2-1.0) 0.3 MG/DL (0.2-1.0) 0.2 MG/DL (0.2-1.0) Total Protein 5.5 GM/DL (6.4-8.2) 5.5 GM/DL (6.4-8.2) 5.3 GM/DL (6.4-8.2) Albumin 1.8 GM/DL (3.2-5.2) 1.9 GM/DL (3.2-5.2) 2.0 GM/DL (3.2-5.2) Laboratory Tests 03/17/19 06:11 Red Blood Count 2.79, Mean Corpuscular Volume 87.5, Mean Corpuscular Hemoglobin 28.3, Mean Corpuscular Hemoglobin Concent 32.4, Red Cell Distribution Width 13.7, Calcium Level 7.9, Aspartate Amino Transf (AST/SGOT) 43, Alanine Aminotransferase (ALT/SGPT) 109, Alkaline Phosphatase 293, Total Bilirubin 0.3, Total Protein 5.5, Albumin 1.8 03/18/19 05:48 Red Blood Count 2.79, Mean Corpuscular Volume 90.0, Mean Corpuscular Hemoglobin 29.4, Mean Corpuscular Hemoglobin Concent 32.7, Red Cell Distribution Width 13.8, Calcium Level 8.1, Aspartate Amino Transf (AST/SGOT) 45, Alanine Am inotransferase (ALT/SGPT) 96, Alkaline Phosphatase 284, Total Bilirubin 0.3, Total Protein 5.5, Albumin 1.9 03/19/19 05:35 Calcium Level 8.1, Aspartate Amino Transf (AST/SGOT) 26, Alanine Aminotransferase (ALT/SGPT) 81, Alkaline Phosphatase 273, Total Bilirubin 0.2, Total Protein 5.3, Albumin 2.0 Microbiology Microbiology 03/13/19 Blood Culture - Final, Complete NO GROWTH AFTER 5 DAYS 03/13/19 Blood Culture - Final, Complete NO GROWTH AFTER 5 DAYS 03/15/19 Urine Culture - Final, Complete Discharge Medications Scheduled Amoxicillin/Potassium Clav (Augmentin 875-125 Tablet) 1 Each Tablet, 1 TAB PO BID for Endometritis Docusate Sodium (Colace) 100 Mg Capsule, 100 MG PO BID, (Reported) Ferrous Sulfate (Iron) 325 Mg Tablet, 325 MG PO Q8H, (Reported) Folic Acid (Folic Acid) 1 Mg Tablet, 1 MG PO DAILY, (Reported) Vit37/Iron/Folic Acid (Prenata Chewable Tablet) 1 Each Tab.chew, 1 CHW PO DAILY, (Reported) Sennosides/Docusate Sodium (Senna-S Tablet) 1 Each Tablet, 1 TAB PO BID, (Reported) Warfarin Sodium (Warfarin Sodium) 4 Mg Tablet, 4 MG PO DAILY Scheduled PRN Acetaminophen (Acetaminophen) 325 Mg Tablet, 650 MG PO Q4H PRN for PAIN, (Reported) Ibuprofen (Ibuprofen) 800 Mg Tablet, 800 MG PO TID PRN for PAIN, (Reported) Allergies Coded Allergies: amoxicillin (Verified Allergy, Unknown, HIVES, 03/13/19) cefprozil (Verified Allergy, Unknown, HIVES, 03/13/19) GUSTAVO FLYNN MD Mar 20, 2019 11:39
== END 2019-03-19 12:05 | disposition home or self-care (01) | DRG 776 ==
LOC: M PCU 12:57
PROVIDERS: ADMIT Internal Medicine; ATTEND Internal Medicine
DX: O85 Puerperal sepsis (principal); I26.99 Other pulmonary embolism without acute cor pulmonale; O86.12 Endometritis following delivery; Z88.0 Allergy status to penicillin; Z88.8 Allergy status to other drugs, medicaments and biological substances; K59.00 Constipation, unspecified; D64.9 Anemia, unspecified; O99.03 Anemia complicating the puerperium; O99.63 Diseases of the digestive system complicating the puerperium

== ENCOUNTER → 2019-03-24 | Outpatient (CLI) | payer OTHER ==
[~2019-03-24] MED LIST changes: +ACET-908 PO; +AUGM875T28 PO; +CLIN1INJ IV; +COLA100C5 PO; +FOLI1TAB11 PO; +IBUP80TA PO; +IRON65TA2 PO; +LOVE1INJ SC; +PREN1CHW6 PO; +SENN-23 PO; +WARF-20 PO; +[UNRECOGNIZED DRUG - CODE] IV
[2019-03-24 19:42] LABS: INR 2.24; PROTHROMBIN TIME 24.6 SECONDS (11.8-14.0)
== END ==
LOC: M LABDRWAD 16:08
PROVIDERS: ATTEND Family Medicine
DX: O88.23 Thromboembolism in the puerperium (principal)

== ENCOUNTER → 2019-04-16 | Outpatient (REF) | payer OTHER ==
[2019-04-16 20:02] LABS: INR 1.88; PROTHROMBIN TIME 21.4 SECONDS (11.8-14.0)
== END ==
LOC: M LABDRWAD 19:07
PROVIDERS: ATTEND Family Medicine
DX: O88.23 Thromboembolism in the puerperium (principal)

== ENCOUNTER → 2019-05-05 | Outpatient (CLI) | payer OTHER ==
[~2019-05-05] MED LIST changes: +ISOVUE-370 76% 100ML VIAL (Q9967) As Ordered ONE
--- NOTE | 2019-05-18 18:21 | REP ---
CT ANGIOGRAM CHEST: TECHNIQUE: Axial contrast enhanced images from the thoracic inlet to the upper abdomen using 100 mL Isovue 370 intravenous contrast material with multiplanar reformations. Delay in interpretation awaiting outside prior study dated 03/13/2019 which has arrived 05/18/2019. The previously noted small central pulmonary emboli in the right middle and lower lobe have resolved. No pulmonary emboli are seen at this time. There is no thoracic aortic aneurysm or dissection. The heart is normal in size. There is no portal or pericardial effusion with resolution of the previously noted small right effusion. Small amount of residual thymic tissue is seen in the anterior mediastinum. There is no evidence of mediastinal, hilar or chest wall lymphadenopathy. Lung hartman show a small patchy of atelectasis or infiltrate in the posterior costophrenic sulcus in the right. Previously noted infiltrates/atelectasis and bilateral lower lobes have otherwise essentially cleared. IMPRESSION: Previously noted small pulmonary emboli in the right middle and lower lobes have resolved. No current evidence of pulmonary embolism. Previously noted small right effusion and bilateral lower lung infiltrates/atelectasis have cleared. There is a small patch of atelectasis/infiltrate in the right posterior costophrenic sulcus. Electronically Signed by Chad Coto MD 05/19/2019 12:18 A
== END ==
LOC: M RAD 17:08
PROVIDERS: ATTEND Internal Medicine
DX: Z86.711 Personal history of pulmonary embolism (principal); J98.11 Atelectasis
CPT/HCPCS: 71275; Q9967